=== PATIENT | female | born 1960 | race Caucasian/White ===

== ENCOUNTER → 2017-01-12 | Outpatient (CLI) | payer BC | LOC: MC.RAD 08:22 | DX: Z12.31 Encounter for screening mammogram for malignant neoplasm of breast (principal) ==

== ENCOUNTER 2017-06-05 14:05 | Outpatient (RCR) | payer OTHER | END 2017-07-20 10:34 | disposition home or self-care (01) | LOC: WSOH 14:05 | DX: S52.502A Unspecified fracture of the lower end of left radius, initial encounter for closed fracture (principal); W01.198A Fall on same level from slipping, tripping and stumbling with subsequent striking against other object, initial encounter; Y99.0 Civilian activity done for income or pay | CPT/HCPCS: 24091; A6549 ==